=== PATIENT | female | born 1995 ===

== ENCOUNTER 2022-09-19 13:21 | Inpatient (IN) | payer OTHER ==
[~2022-09-19] VITALS: Ht 147.3 cm; Wt 68.0 kg
[2022-09-21] MEDS ORDERED: IRON325 MG PO (06:14)
[2022-09-21] MEDS ORDERED: PRENATAL TABLE1 EAC1 (06:15)
== END 2022-09-23 16:14 | disposition home or self-care (01) | DRG 807 ==
LOC: EDBD → OB/GYN 13:21 → LDR 09-21 05:17 → OB/GYN 09-21 13:09
PROVIDERS: ADMIT Specialist; ATTEND Specialist
PROC: 10E0XZZ Delivery of Products of Conception, External Approach (ICD-10-PCS; principal; 2022-09-21)
PROC: 0W8NXZZ Division of Female Perineum, External Approach (ICD-10-PCS; 2022-09-21)
PROC: 3E033VJ Introduction of Other Hormone into Peripheral Vein, Percutaneous Approach (ICD-10-PCS; 2022-09-21)
PROC: 4A1HXCZ Monitoring of Products of Conception, Cardiac Rate, External Approach (ICD-10-PCS; 2022-09-21)
DX: O80 Encounter for full-term uncomplicated delivery (principal); Z37.0 Single live birth; Z3A.40 40 weeks gestation of pregnancy; Z20.822 Contact with and (suspected) exposure to COVID-19

== ENCOUNTER 2024-07-30 11:11 | Inpatient (IN) | payer OTHER ==
[~2024-07-30] VITALS: Ht 147.3 cm; Wt 68.0 kg
[~2024-07-30 11:11] MED LIST: IRON325 MG PO; PRENATAL TABLE1 EAC1
[2024-08-14] VITALS (8 sets, daily range): BP systolic 105–123; BP diastolic 57–73
[2024-08-14] MEDS ORDERED: OXYTOCIN 20 UNITS/500ML RL PIGGYBAG IV ONE (10:25)
[2024-08-14] MEDS ORDERED: PRENATAL + DHA1 EAC1 PO (10:30)
[2024-08-14] MEDS ORDERED: OXYTOCIN 500 ML IV SCH (10:45)
[2024-08-14 10:58] LABS: PH,URINE 6.5 (5.0-8.0); URINE APPEARANCE Clear; URINE BILIRRUBIN Negative (NEGATIVE); URINE BLOOD Small; URINE COLOR Yellow; URINE GLUCOSE Negative (NEGATIVE); URINE KETONE Negative (NEGATIVE); URINE LEUKOCYTE Small; URINE NITRATE Negative; URINE PROTEIN Negative (NEGATIVE); URINE UROBILINOGEN 0.2 E.U./dl
[2024-08-14 11:01] LABS: URINE BACTERIA 981.5 uL (0.0-1933); URINE EPITHELIAL CELLS 20.4 uL (0.0-38.8); URINE RBC 10.1 uL (0.0-20.8); URINE WBC 61.4 uL (0.0-23.2)
[2024-08-14 11:12] LABS: BASO % 0.2 % (0.1-1.2); EOS # 0.03 (0.04-0.54); EOS % 0.3 % (0.7-7.0); HEMOGLOBIN 12.1 g/dL (11.2-15.7); LYMPH # 1.91 (1.18-3.74); LYMPH % 21.8 % (19.3-53.1); MEAN CORPUSCULAR HEMOGLOBIN 25.9 pg (25.6-32.2); MONO # 0.57 (0.24-0.82); MONO % 6.5 % (4.7-12.5); NEUT # 6.16 (1.56-6.13); NEUT % 70.4 % (34.0-71.1); PLATELET COUNT 250 K/uL (163-369); RED BLOOD COUNT 4.68 M/uL (3.93-5.22); RED CELL DISTRIBUTION WIDTH 16.1 % (11.6-14.4)
[2024-08-14 11:24] LABS: URINE CAST 0.88 uL (0.0-1.40); URINE MUCUS SCANT
[2024-08-14 11:53] LABS: ALBUMIN 3.3 gm/dL (3.4-5.0); BILIRUBIN TOTAL 0.39 mg/dL (0.3-1.2); CALCIUM 8.8 mg/dL (8.5-10.1); CREATININE SERUM 0.57 mg/dL (0.55-1.02); GFR 124.54; GLOBULINA 3.5 G/DL (2.4-3.5); POTASSIUM 3.9 mEq/L (3.5-5.1); TOTAL PROTEIN 6.8 gm/dL (6.4-8.2)
[2024-08-14] MEDS ORDERED: OXYTOCIN 20 UNITS/1000ML RL PIGGYBAG IV ONE (15:46)
[2024-08-14] MEDS ORDERED: ERYTHROMYCIN BASE OPHT 1GM EACH TUBE OP ONE ×2 (15:46→16:45)
[2024-08-14] MEDS ORDERED: LIDOCAINE HCL 1% 10ML VIAL ONE (15:47)
[2024-08-14] MEDS ORDERED: CHLORHEXIDINE GLUCONATE 120 ML BOTTLE TOP ONE ×2 (15:47→17:30)
[2024-08-14] MEDS ORDERED: LIDOCAINE HCL 1% 10ML VIAL IJ ONE (16:45)
[2024-08-14] MEDS ORDERED: IBUprofen 800 MG TABLET PO PRN (16:45)
[2024-08-14] MEDS ORDERED: ACETAMINOPHEN 500 MG GEL..CAP PO PRN (16:45)
[2024-08-14] MEDS ORDERED: BENZOCAINE/MENTHOL 90 ML BOTTLE TOP SCH (17:00)
[2024-08-14] MEDS ORDERED: OXYTOCIN 1,000 ML IV SCH (17:30)
[2024-08-14] MEDS ORDERED: HYDROCORTISONE 2.5% 30 GM TUBE RECTAL SCH (19:00)
[2024-08-15 02:20] LABS: BASO % 0.1 % (0.1-1.2); HEMATOCRIT 32.6 % (34.1-44.9); LYMPH # 1.96 (1.18-3.74); MEAN CORPUSCULAR HEMOGLOBIN 25.4 pg (25.6-32.2); MONO # 1.44 (0.24-0.82); MONO % 7.4 % (4.7-12.5); NEUT # 16.01 (1.56-6.13); NEUT % 81.9 % (34.0-71.1); PLATELET COUNT 233 K/uL (163-369); RED BLOOD COUNT 4.22 M/uL (3.93-5.22); RED CELL DISTRIBUTION WIDTH 15.7 % (11.6-14.4)
[2024-08-15 02:24] LABS: HEMOGLOBIN 10.7 g/dL (11.2-15.7)
[2024-08-15 03:14] VITALS: BP 100/65
[2024-08-15 09:53] VITALS: BP 100/60
[2024-08-15 16:08] VITALS: BP 106/69
[2024-08-16 01:38] VITALS: BP 100/66
[2024-08-16 08:23] VITALS: BP 100/62
== END 2024-08-16 13:50 | disposition home or self-care (01) | DRG 807 ==
LOC: OB/GYN 08-06 11:09 → LDR 08-14 09:39 → OB/GYN 08-14 16:59
PROVIDERS: ADMIT Specialist; ATTEND Specialist
PROC: 10E0XZZ Delivery of Products of Conception, External Approach (ICD-10-PCS; principal; 2024-08-14)
PROC: 4A1HXCZ Monitoring of Products of Conception, Cardiac Rate, External Approach (ICD-10-PCS; 2024-08-14)
DX: O48.0 Post-term pregnancy (principal); Z37.0 Single live birth; Z3A.41 41 weeks gestation of pregnancy